=== PATIENT | male | born 1945 | race Caucasian/White ===

== ENCOUNTER → 2016-09-09 | Day surgery (SDC) | payer MEDICARE, BC, OTHER ==
[~2016-09-09] VITALS: Ht 190.5 cm; Wt 167.8 kg
[~2016-09-09] MED LIST: ACETAMINOPHEN 325 MG TAB PO PRN; ACETYLCHOLINE OPHTH SOLN 1% 2ML As Ordered ONE; ALLO100T PO; AMLO2.5T PO; ASPI1TAB PO; AcetaZOLAMIDE 500 MG ER CAP PO ONE; BIMA01SOL OD; BSS with VANC/TOB/EPI for EYE CASES IR ONE; CEFUROXIME 1MG/0.1ML INTRACAMERAL INJ As Ordered ONE; CYCLOPENTOLATE 2% OPHTH SOLN OS ONE; D5W/0.2% SODIUM CHLORIDE 250 ML IV SCH; FISH100049 PO; HEALON DUET (HEALON 10MG/ML 0.55ML & HEALON ENDOCOAT 30MG/ML 0.85ML) As Ordered ONE; HYDR25TAB PO; KETOROLAC 0.5% OPHTH SOLN OS ONE; LASI40TA PO; LIDOCAINE 1% SDV 5 ML VIAL As Ordered ONE; LIDOCAINE 4% INJ 5 ML AMP OU ONE; LISI40TAB PO; MIDAZOLAM INJ 2 MG/2 ML VIAL (J2250) As Ordered ONE; MULT1TAB9 PO; OFLOXACIN 0.3 % (OCUFLOX) OPTH SOL 5ML OS ONE; PHENYLEPHRINE 2.5% OPHTH SOL 2ML OS ONE; POVIDONE-IODINE 5% OPHTH PREP SOL 30ML As Ordered ONE; PROPARACAINE 0.5% OPHTH SOL 15ML OS PRN; SIMB1SUS OD; TRIMETHOBENZAMIDE 300 MG CAP PO PRN; TROPICAMIDE 1% OPHTH SOLN 2 ML OS ONE; TUMERIC; fentaNYL 100 MCG/2 ML INJECTION (J3010) As Ordered ONE
[2016-09-09 09:12] VITALS: BP 145/80
--- NOTE | 2016-09-09 16:19 | RO ---
DATE OF PROCEDURE: 09/09/2016 PREPROCEDURE DIAGNOSIS: 1. Cataract left eye. 2. Glaucoma left eye. 3. Iridolenticular adhesions left eye. POSTPROCEDURE DIAGNOSIS: 1. Cataract left eye. 2. 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 SURGEON: Blossom Bradley MD METALLURGICAL TECHNICIAN: None. ANESTHESIA: COMPLICATIONS: None. DESCRIPTION OF PROCEDURE: The patient was brought to the operating room and laid in supine position. The eye was prepped and draped in a sterile fashion for ophthalmic surgery and a lid speculum was placed. A side port incision was made and EndoCoat was injected was injected into the anterior chamber. Temporal clear corneal incision was then made with a 2.4 mm keratome. This was followed by lysing of the iridolenticular adhesions with the help of the EndoCoat cannula and the Kuglen forcep. After the lysis were done, capsulorrhexis was done followed by hydrodissection. Phacoemulsification was carried out in a divide and conquer method followed by aspiration of the cortical material. Healon was placed in the capsular bag and the intraocular lens was then placed. Healon was then placed in the ciliary sulcus to visualize the ciliary processes under high mag with the help of the video screen and EndoProbe. Endocyclophotocoagulation was then done 280 degrees at 0.25 milliwatts. Good results were noted by shrinking of the ciliary processes. Excess Healon was then aspirated, the wound hydrated, lid speculum removed and the patient returned to the recovery room.
== END | disposition home or self-care (01) ==
LOC: M SDC 06:53
PROVIDERS: ATTEND Ophthalmology
DX: H26.9 Unspecified cataract (principal); H40 Glaucoma; H21.502 Unspecified adhesions of iris, left eye; I10 Essential (primary) hypertension; M10.9 Gout, unspecified; G47.30 Sleep apnea, unspecified; R06.02 Shortness of breath; Z79.82 Long term (current) use of aspirin; Z79.899 Other long term (current) drug therapy; F17.210 Nicotine dependence, cigarettes, uncomplicated
CPT/HCPCS: 66711; 66984; J2250; J3010; V2632

== ENCOUNTER → 2017-05-08 | Outpatient (REF) | payer MEDICARE, OTHER ==
[~2017-05-08] MED LIST changes: -ACETAMINOPHEN 325 MG TAB PO PRN; -ACETYLCHOLINE OPHTH SOLN 1% 2ML As Ordered ONE; -AcetaZOLAMIDE 500 MG ER CAP PO ONE; -BSS with VANC/TOB/EPI for EYE CASES IR ONE; -CEFUROXIME 1MG/0.1ML INTRACAMERAL INJ As Ordered ONE; -CYCLOPENTOLATE 2% OPHTH SOLN OS ONE; -D5W/0.2% SODIUM CHLORIDE 250 ML IV SCH; -HEALON DUET (HEALON 10MG/ML 0.55ML & HEALON ENDOCOAT 30MG/ML 0.85ML) As Ordered ONE; -KETOROLAC 0.5% OPHTH SOLN OS ONE; -LIDOCAINE 1% SDV 5 ML VIAL As Ordered ONE; -LIDOCAINE 4% INJ 5 ML AMP OU ONE; -MIDAZOLAM INJ 2 MG/2 ML VIAL (J2250) As Ordered ONE; -OFLOXACIN 0.3 % (OCUFLOX) OPTH SOL 5ML OS ONE; -PHENYLEPHRINE 2.5% OPHTH SOL 2ML OS ONE; -POVIDONE-IODINE 5% OPHTH PREP SOL 30ML As Ordered ONE; -PROPARACAINE 0.5% OPHTH SOL 15ML OS PRN; -TRIMETHOBENZAMIDE 300 MG CAP PO PRN; -TROPICAMIDE 1% OPHTH SOLN 2 ML OS ONE; -fentaNYL 100 MCG/2 ML INJECTION (J3010) As Ordered ONE
[2017-05-08 12:00] LABS: ANION GAP 8 MEQ/L (8-16); BLOOD UREA NITROGEN 16 MG/DL (7-18); CALCIUM LEVEL 9.3 MG/DL (8.8-10.2); CARBON DIOXIDE LEVEL 29 MEQ/L (21-32); CHLORIDE LEVEL 106 MEQ/L (98-107); CHOLESTEROL LEVEL 165 MG/DL (<200); CREATININE FOR GFR 1.09 MG/DL (0.70-1.30); GLOMERULAR FILTRATION RATE > 60.0 (>42); GLUCOSE, FASTING 89 MG/DL (83-110); POTASSIUM SERUM 4.4 MEQ/L (3.5-5.1); SODIUM LEVEL 143 MEQ/L (136-145); TRIGLYCERIDES LEVEL 140 MG/DL (<150)
== END ==
LOC: M SFHCCLAY 08:39
PROVIDERS: ATTEND Family Medicine
DX: E78.2 Mixed hyperlipidemia (principal); M10.9 Gout, unspecified; I10 Essential (primary) hypertension; Z23 Encounter for immunization
CPT/HCPCS: 80048; 80061; 84550; 90662; G0008; G0463

== ENCOUNTER 2018-03-03 09:58 | Inpatient (IN) | payer MEDICARE, OTHER, BC ==
[2018-03-03] MEDS: LR 1,000 ML IV ×3 (10:53→16:00)
[2018-03-03 10:59] LABS: INR 1.11; PROTHROMBIN TIME 14.4 SECONDS (12.1-14.4)
[2018-03-03] MEDS ORDERED: fentaNYL 100 MCG/2 ML INJECTION (J3010) As Ordered ×2 (11:54→14:31)
[2018-03-03] MEDS ORDERED: LIDOCAINE 2% INJ 100 MG/5 ML SDV (FOR ANES.) As Ordered (11:58)
[2018-03-03] MEDS ORDERED: PROPOFOL 200 MG/20 ML VIAL As Ordered (11:58)
[2018-03-03] MEDS ORDERED: ONDANSETRON 4MG/2ML VIAL (J2405) As Ordered (11:59)
[2018-03-03] MEDS ORDERED: MIDAZOLAM INJ 2 MG/2 ML VIAL (J2250) As Ordered (11:59)
[2018-03-03] MEDS ORDERED: ePHEDrine SULFATE 25 MG/5 ML(5MG/ML) SYRINGE As Ordered ×3 (12:11→15:30)
[2018-03-03] MEDS: ceFAZolin SOD 1 GM in D5W MINI-BAG PLUS 50 ML IV ×2 (13:10→22:35)
[2018-03-03] MEDS ORDERED: dexameTHASONE 4 MG/ML 1ML VIAL (J1100) As Ordered (14:28)
[2018-03-03] MEDS ORDERED: GLYCOPYRROLATE INJ 0.2 MG/ML 2 ML VIAL As Ordered ×2 (14:33)
[2018-03-03] MEDS ORDERED: NEOSTIGMINE 10 MG/10 ML VIAL (J2710) As Ordered (14:33)
[2018-03-03] MEDS: TRANEXAMIC ACID 100 MG/ML 10ML VIAL As Ordered (14:35)
[2018-03-03] MEDS: ceFAZolin 1GM INJ (J0690 PER 500MG) As Ordered (14:35)
[2018-03-03] MEDS: EPINEPHrine INJ 1 MG/ML 1ML AMP As Ordered (14:35)
[2018-03-03] MEDS ORDERED: MORPHINE 1MG/ML IN 0.9% NACL 100ML IV BAG As Ordered (15:35)
[2018-03-03] MEDS ORDERED: ACETAMINOPHEN TAB 650MG DOSE (2X325MG) PO (16:00)
[2018-03-03] MEDS ORDERED: NALOXONE INJ 0.4 MG/1 ML VIAL (J2310) IV (16:00)
[2018-03-03] MEDS ORDERED: FLEET ENEMA PR (16:00)
[2018-03-03] MEDS ORDERED: diphenhydrAMINE INJ 50MG/ML VIAL (J1200) IV (16:00)
[2018-03-03] MEDS ORDERED: ONDANSETRON 4MG/2ML VIAL (J2405) IV (16:00)
[2018-03-03] MEDS ORDERED: EPIDURAL/PCA KEYS XX (16:00)
[2018-03-03] MEDS ORDERED: NALBUPHINE HCL 10 MG/ML AMP (J2300) IV (16:00)
[2018-03-03] MEDS: PERCOCET 5MG/325MG TAB PO ×2 (16:08→16:46)
[2018-03-03] MEDS: fentaNYL 100 MCG/2 ML INJECTION (J3010) IV ×4 (16:15→16:35)
[2018-03-03] MEDS: ONDANSETRON 4MG/2ML VIAL (J2405) IV (16:19)
[2018-03-03] MEDS: MORPHINE 1MG/ML IN 0.9% NACL 100ML IV BAG IV (16:20)
[2018-03-03] MEDS: AcetaZOLAMIDE 500 MG ER CAP PO (22:33)
[2018-03-03] MEDS: LISINOPRIL 20 MG TAB PO (22:34)
[2018-03-03] MEDS: RHOPRESSA 0.02% OS (22:34)
[2018-03-03] MEDS: SIMBRINZA OD (22:34)
[2018-03-03] MEDS: VYZULTA 0.024% OU (22:34)
[2018-03-03] MEDS: EYE OD (22:34)
[2018-03-03] MEDS: TIMOLOL MALEATE 0.5% OPHTH SOLN 5 ML OU (22:35)
[2018-03-04] MEDS: LR 1,000 ML IV (05:20)
[2018-03-04] MEDS ORDERED: ONDANSETRON 4 MG TAB (S0181) PO (06:30)
[2018-03-04] MEDS: ceFAZolin SOD 1 GM in D5W MINI-BAG PLUS 50 ML IV (06:30)
[2018-03-04 07:21] LABS: HEMATOCRIT 34.4 % (42.0-52.0); HEMOGLOBIN 11.5 g/dl (13.5-17.5); MEAN CORPUSCULAR HEMOGLOBIN 29.3 pg (27.0-33.0); MEAN CORPUSCULAR HGB CONC 33.4 g/dl (32.0-36.5); MEAN CORPUSCULAR VOLUME 87.8 fl (80.0-96.0); PLATELET COUNT, AUTOMATED 194 10^3/uL (150-450); RED BLOOD COUNT 3.92 10^6/uL (4.30-6.10); RED CELL DISTRIBUTION WIDTH 14.6 % (11.5-14.5); WHITE BLOOD COUNT 10.6 10^3/uL (4.0-10.0)
[2018-03-04] MEDS: LISINOPRIL 20 MG TAB PO ×2 (08:14→20:13)
[2018-03-04] MEDS: ALLOPURINOL 100 MG TAB PO (08:15)
[2018-03-04] MEDS: FUROSEMIDE 40 MG TAB PO (08:15)
[2018-03-04] MEDS: hydroCHLOROthiazide 25 MG TAB PO (08:15)
[2018-03-04] MEDS: SENOKOT S TAB PO ×2 (08:15→20:13)
[2018-03-04] MEDS: RIVAROXABAN 10 MG TAB (XARELTO) PO (08:16)
[2018-03-04] MEDS: AcetaZOLAMIDE 500 MG ER CAP PO ×2 (08:17→20:13)
[2018-03-04] MEDS: MOM 30ML SUSPENSION UDC PO (08:17)
[2018-03-04] MEDS: MIRALAX *UNIT DOSE* 17GM PACKET PO (08:17)
[2018-03-04] MEDS: TIMOLOL MALEATE 0.5% OPHTH SOLN 5 ML OU ×2 (08:17→20:13)
[2018-03-04] MEDS: EYE OD ×2 (08:18→20:13)
[2018-03-04] MEDS: SIMBRINZA OD ×2 (08:18→20:13)
[2018-03-04] MEDS: PERCOCET 5MG/325MG TAB PO ×3 (08:39→20:15)
[2018-03-04 12:19] LABS: ANION GAP 8 MEQ/L (8-16); BLOOD UREA NITROGEN 25 MG/DL (7-18); CARBON DIOXIDE LEVEL 20 MEQ/L (21-32); CHLORIDE LEVEL 113 MEQ/L (98-107); CREATININE FOR GFR 1.38 MG/DL (0.70-1.30); GLOMERULAR FILTRATION RATE 54.1 (>42); GLUCOSE, FASTING 106 MG/DL (70-100); POTASSIUM SERUM 4.4 MEQ/L (3.5-5.1); SODIUM LEVEL 141 MEQ/L (136-145)
[2018-03-04] MEDS: RHOPRESSA 0.02% OS (20:13)
[2018-03-04] MEDS: VYZULTA 0.024% OU (20:14)
[2018-03-05] MEDS: PERCOCET 5MG/325MG TAB PO ×5 (00:24→20:14)
[2018-03-05 06:56] LABS: HEMATOCRIT 31.5 % (42.0-52.0); HEMOGLOBIN 10.5 g/dl (13.5-17.5); MEAN CORPUSCULAR HEMOGLOBIN 29.4 pg (27.0-33.0); MEAN CORPUSCULAR HGB CONC 33.3 g/dl (32.0-36.5); MEAN CORPUSCULAR VOLUME 88.2 fl (80.0-96.0); PLATELET COUNT, AUTOMATED 155 10^3/uL (150-450); RED BLOOD COUNT 3.57 10^6/uL (4.30-6.10); RED CELL DISTRIBUTION WIDTH 14.5 % (11.5-14.5); WHITE BLOOD COUNT 10.3 10^3/uL (4.0-10.0)
[2018-03-05] MEDS: MIRALAX *UNIT DOSE* 17GM PACKET PO (08:12)
[2018-03-05] MEDS: MOM 30ML SUSPENSION UDC PO (08:12)
[2018-03-05] MEDS: ALLOPURINOL 100 MG TAB PO (08:13)
[2018-03-05] MEDS: SENOKOT S TAB PO ×2 (08:13→20:12)
[2018-03-05] MEDS: FUROSEMIDE 40 MG TAB PO (08:13)
[2018-03-05] MEDS: RIVAROXABAN 10 MG TAB (XARELTO) PO (08:13)
[2018-03-05] MEDS: SIMBRINZA OD ×2 (08:15→20:14)
[2018-03-05] MEDS: TIMOLOL MALEATE 0.5% OPHTH SOLN 5 ML OU ×2 (08:15→20:14)
[2018-03-05] MEDS: EYE OD ×2 (08:15→20:14)
[2018-03-05] MEDS: LISINOPRIL 20 MG TAB PO ×2 (08:19→20:12)
[2018-03-05] MEDS: AcetaZOLAMIDE 500 MG ER CAP PO ×2 (08:20→20:12)
[2018-03-05] MEDS: hydroCHLOROthiazide 25 MG TAB PO (08:20)
[2018-03-05] MEDS: VYZULTA 0.024% OU (20:15)
[2018-03-05] MEDS: RHOPRESSA 0.02% OS (20:15)
[2018-03-06] MEDS: PERCOCET 5MG/325MG TAB PO ×3 (03:52→20:11)
[2018-03-06] MEDS: MOM 30ML SUSPENSION UDC PO (08:02)
[2018-03-06] MEDS: MIRALAX *UNIT DOSE* 17GM PACKET PO (08:02)
[2018-03-06] MEDS: EYE OD ×2 (08:03→20:12)
[2018-03-06] MEDS: TIMOLOL MALEATE 0.5% OPHTH SOLN 5 ML OU ×2 (08:03→20:12)
[2018-03-06] MEDS: SIMBRINZA OD ×2 (08:03→20:12)
[2018-03-06] MEDS: AcetaZOLAMIDE 500 MG ER CAP PO ×2 (08:03→20:09)
[2018-03-06] MEDS: RIVAROXABAN 10 MG TAB (XARELTO) PO (08:03)
[2018-03-06] MEDS: LISINOPRIL 20 MG TAB PO (08:04)
[2018-03-06] MEDS: SENOKOT S TAB PO ×2 (08:04→20:09)
[2018-03-06] MEDS: hydroCHLOROthiazide 25 MG TAB PO (08:06)
[2018-03-06] MEDS: ALLOPURINOL 100 MG TAB PO (08:06)
[2018-03-06] MEDS: FUROSEMIDE 40 MG TAB PO (08:09)
[2018-03-06 08:28] LABS: HEMATOCRIT 31.1 % (42.0-52.0); HEMOGLOBIN 10.4 g/dl (13.5-17.5); MEAN CORPUSCULAR HGB CONC 33.4 g/dl (32.0-36.5); MEAN CORPUSCULAR VOLUME 89.6 fl (80.0-96.0); PLATELET COUNT, AUTOMATED 165 10^3/uL (150-450); RED BLOOD COUNT 3.47 10^6/uL (4.30-6.10); RED CELL DISTRIBUTION WIDTH 14.6 % (11.5-14.5); WHITE BLOOD COUNT 9.2 10^3/uL (4.0-10.0)
[2018-03-06] MEDS ORDERED: FLEET ENEMA PR (08:45)
[2018-03-06 08:53] LABS: ANION GAP 8 MEQ/L (8-16); BLOOD UREA NITROGEN 36 MG/DL (7-18); CARBON DIOXIDE LEVEL 22 MEQ/L (21-32); CHLORIDE LEVEL 108 MEQ/L (98-107); CREATININE FOR GFR 1.66 MG/DL (0.70-1.30); GLOMERULAR FILTRATION RATE 43.7 (>42); GLUCOSE, FASTING 102 MG/DL (70-100); POTASSIUM SERUM 3.7 MEQ/L (3.5-5.1); SODIUM LEVEL 138 MEQ/L (136-145)
[2018-03-06] MEDS: FLEET ENEMA PR (10:16)
[2018-03-06] MEDS: NS 1,000 ML IV ×2 (12:42→23:54)
[2018-03-06] MEDS: VYZULTA 0.024% OU (20:11)
[2018-03-06] MEDS: RHOPRESSA 0.02% OS (20:12)
[2018-03-07 07:11] LABS: ANION GAP 7 MEQ/L (8-16); BLOOD UREA NITROGEN 32 MG/DL (7-18); CALCIUM LEVEL 8.5 MG/DL (8.8-10.2); CARBON DIOXIDE LEVEL 22 MEQ/L (21-32); CHLORIDE LEVEL 108 MEQ/L (98-107); CREATININE FOR GFR 1.29 MG/DL (0.70-1.30); GLOMERULAR FILTRATION RATE 58.5 (>42); GLUCOSE, FASTING 106 MG/DL (70-100); POTASSIUM SERUM 3.5 MEQ/L (3.5-5.1); SODIUM LEVEL 137 MEQ/L (136-145)
[2018-03-07] MEDS: MOM 30ML SUSPENSION UDC PO (07:51)
[2018-03-07] MEDS: MIRALAX *UNIT DOSE* 17GM PACKET PO (07:51)
[2018-03-07] MEDS: TIMOLOL MALEATE 0.5% OPHTH SOLN 5 ML OU ×2 (07:52→20:44)
[2018-03-07] MEDS: SIMBRINZA OD ×2 (07:52→20:44)
[2018-03-07] MEDS: EYE OD ×2 (07:52→20:44)
[2018-03-07] MEDS: PERCOCET 5MG/325MG TAB PO ×2 (07:53→17:44)
[2018-03-07] MEDS: SENOKOT S TAB PO ×2 (07:53→20:43)
[2018-03-07] MEDS: ALLOPURINOL 100 MG TAB PO (07:53)
[2018-03-07] MEDS: AcetaZOLAMIDE 500 MG ER CAP PO ×2 (07:54→20:43)
[2018-03-07] MEDS: RIVAROXABAN 10 MG TAB (XARELTO) PO (07:54)
[2018-03-07] MEDS: VYZULTA 0.024% OU (20:44)
[2018-03-07] MEDS: RHOPRESSA 0.02% OS (20:44)
[2018-03-08] MEDS: MIRALAX *UNIT DOSE* 17GM PACKET PO (09:00)
[2018-03-08] MEDS: MOM 30ML SUSPENSION UDC PO (09:00)
[2018-03-08] MEDS: ALLOPURINOL 100 MG TAB PO (09:06)
[2018-03-08] MEDS: RIVAROXABAN 10 MG TAB (XARELTO) PO (09:06)
[2018-03-08] MEDS: SENOKOT S TAB PO ×2 (09:07→21:00)
[2018-03-08] MEDS: AcetaZOLAMIDE 500 MG ER CAP PO ×2 (09:07→21:09)
[2018-03-08] MEDS: SIMBRINZA OD ×2 (09:07→21:10)
[2018-03-08] MEDS: TIMOLOL MALEATE 0.5% OPHTH SOLN 5 ML OU ×2 (09:07→21:10)
[2018-03-08] MEDS: EYE OD ×2 (09:07→21:10)
[2018-03-08] MEDS: amLODIPine 5 MG TAB PO (09:07)
[2018-03-08] MEDS: INFLUENZA VIRUS VACCINE HIGH DOSE 0.5 ML SYRINGE (90662) IM (09:09)
[2018-03-08] MEDS: PERCOCET 5MG/325MG TAB PO ×2 (09:16→17:10)
[2018-03-08] MEDS: RHOPRESSA 0.02% OS (21:10)
[2018-03-08] MEDS: VYZULTA 0.024% OU (21:10)
[2018-03-09] MEDS: PERCOCET 5MG/325MG TAB PO (07:43)
[2018-03-09 07:46] LABS: HEMATOCRIT 30.2 % (42.0-52.0); HEMOGLOBIN 10.1 g/dl (13.5-17.5); MEAN CORPUSCULAR HEMOGLOBIN 29.4 pg (27.0-33.0); MEAN CORPUSCULAR HGB CONC 33.4 g/dl (32.0-36.5); PLATELET COUNT, AUTOMATED 227 10^3/uL (150-450); RED BLOOD COUNT 3.43 10^6/uL (4.30-6.10); RED CELL DISTRIBUTION WIDTH 14.6 % (11.5-14.5); WHITE BLOOD COUNT 6.8 10^3/uL (4.0-10.0)
[2018-03-09 08:10] LABS: ANION GAP 11 MEQ/L (8-16); BLOOD UREA NITROGEN 25 MG/DL (7-18); CALCIUM LEVEL 8.2 MG/DL (8.8-10.2); CARBON DIOXIDE LEVEL 19 MEQ/L (21-32); CHLORIDE LEVEL 110 MEQ/L (98-107); GLOMERULAR FILTRATION RATE > 60.0 (>42); GLUCOSE, FASTING 107 MG/DL (70-100); POTASSIUM SERUM 3.7 MEQ/L (3.5-5.1); SODIUM LEVEL 140 MEQ/L (136-145)
[2018-03-09] MEDS: ALLOPURINOL 100 MG TAB PO (08:43)
[2018-03-09] MEDS: AcetaZOLAMIDE 500 MG ER CAP PO (08:44)
[2018-03-09] MEDS: RIVAROXABAN 10 MG TAB (XARELTO) PO (08:44)
[2018-03-09] MEDS: SENOKOT S TAB PO (08:44)
[2018-03-09] MEDS: MIRALAX *UNIT DOSE* 17GM PACKET PO (08:44)
[2018-03-09] MEDS: amLODIPine 5 MG TAB PO (08:44)
[2018-03-09] MEDS: MOM 30ML SUSPENSION UDC PO (08:45)
[2018-03-09] MEDS: SIMBRINZA OD (08:46)
[2018-03-09] MEDS: EYE OD (08:46)
[2018-03-09] MEDS: TIMOLOL MALEATE 0.5% OPHTH SOLN 5 ML OU (08:46)
== END 2018-03-09 11:30 | DRG 470 ==
LOC: M OR 09:58 → M MS5PR 18:55
PROC: 0SR904A Replacement of Right Hip Joint with Ceramic on Polyethylene Synthetic Substitute, Uncemented, Open Approach (ICD-10-PCS; principal; 2018-03-03 13:10)
DX: M16.11 Unilateral primary osteoarthritis, right hip (principal); Z68.41 Body mass index [BMI] 40.0-44.9, adult; E66.01 Morbid (severe) obesity due to excess calories; M10.9 Gout, unspecified; H40.9 Unspecified glaucoma; J44.9 Chronic obstructive pulmonary disease, unspecified; G47.30 Sleep apnea, unspecified; E78.5 Hyperlipidemia, unspecified; I10 Essential (primary) hypertension; Z79.82 Long term (current) use of aspirin; Z79.899 Other long term (current) drug therapy; Z98.49 Cataract extraction status, unspecified eye; Z87.891 Personal history of nicotine dependence

== ENCOUNTER → 2018-03-10 | Outpatient (REF) ==
[2018-03-10 11:02] LABS: HEMATOCRIT 35.9 % (42.0-52.0); HEMOGLOBIN 11.4 g/dl (13.5-17.5); MEAN CORPUSCULAR HEMOGLOBIN 29.5 pg (27.0-33.0); MEAN CORPUSCULAR HGB CONC 31.8 g/dl (32.0-36.5); MEAN CORPUSCULAR VOLUME 92.8 fl (80.0-96.0); PLATELET COUNT, AUTOMATED 295 10^3/uL (150-450); RED BLOOD COUNT 3.87 10^6/uL (4.30-6.10); RED CELL DISTRIBUTION WIDTH 14.4 % (11.5-14.5); WHITE BLOOD COUNT 6.9 10^3/uL (4.0-10.0)
[2018-03-10 11:26] LABS: ANION GAP 11 MEQ/L (8-16); BLOOD UREA NITROGEN 20 MG/DL (7-18); CALCIUM LEVEL 8.2 MG/DL (8.8-10.2); CARBON DIOXIDE LEVEL 17 MEQ/L (21-32); CHLORIDE LEVEL 112 MEQ/L (98-107); CREATININE FOR GFR 0.99 MG/DL (0.70-1.30); GLOMERULAR FILTRATION RATE > 60.0 (>42); GLUCOSE, FASTING 81 MG/DL (70-100); POTASSIUM SERUM 4.3 MEQ/L (3.5-5.1); SODIUM LEVEL 140 MEQ/L (136-145)
== END ==
DX: Z96.649 Presence of unspecified artificial hip joint (principal); Z79.899 Other long term (current) drug therapy

== ENCOUNTER → 2018-03-17 | Outpatient (REF) ==
[2018-03-17 09:54] LABS: HEMATOCRIT 31.6 % (42.0-52.0); HEMOGLOBIN 10.3 g/dl (13.5-17.5); MEAN CORPUSCULAR HEMOGLOBIN 29.4 pg (27.0-33.0); MEAN CORPUSCULAR HGB CONC 32.6 g/dl (32.0-36.5); MEAN CORPUSCULAR VOLUME 90.3 fl (80.0-96.0); PLATELET COUNT, AUTOMATED 352 10^3/uL (150-450); RED CELL DISTRIBUTION WIDTH 14.2 % (11.5-14.5); WHITE BLOOD COUNT 8.3 10^3/uL (4.0-10.0)
[2018-03-17 10:32] LABS: ANION GAP 11 MEQ/L (8-16); BLOOD UREA NITROGEN 27 MG/DL (7-18); CALCIUM LEVEL 8.8 MG/DL (8.8-10.2); CARBON DIOXIDE LEVEL 23 MEQ/L (21-32); CHLORIDE LEVEL 107 MEQ/L (98-107); CREATININE FOR GFR 1.21 MG/DL (0.70-1.30); GLOMERULAR FILTRATION RATE > 60.0 (>42); GLUCOSE, FASTING 91 MG/DL (70-100); POTASSIUM SERUM 3.7 MEQ/L (3.5-5.1); SODIUM LEVEL 141 MEQ/L (136-145)
== END ==
DX: Z96.641 Presence of right artificial hip joint (principal); Z79.899 Other long term (current) drug therapy; Z98.890 Other specified postprocedural states

== ENCOUNTER → 2018-04-01 | Outpatient (REF) | payer MEDICARE, OTHER ==
[2018-04-01 16:29] LABS: HEMATOCRIT 33.4 % (42.0-52.0); HEMOGLOBIN 10.8 g/dl (13.5-17.5); MEAN CORPUSCULAR HEMOGLOBIN 28.9 pg (27.0-33.0); MEAN CORPUSCULAR HGB CONC 32.3 g/dl (32.0-36.5); MEAN CORPUSCULAR VOLUME 89.3 fl (80.0-96.0); PLATELET COUNT, AUTOMATED 230 10^3/uL (150-450); RED BLOOD COUNT 3.74 10^6/uL (4.30-6.10); RED CELL DISTRIBUTION WIDTH 14.6 % (11.5-14.5)
[2018-04-01 17:02] LABS: ANION GAP 10 MEQ/L (8-16); BLOOD UREA NITROGEN 40 MG/DL (7-18); CALCIUM LEVEL 8.6 MG/DL (8.8-10.2); CARBON DIOXIDE LEVEL 22 MEQ/L (21-32); CHLORIDE LEVEL 106 MEQ/L (98-107); CREATININE FOR GFR 1.36 MG/DL (0.70-1.30); GLUCOSE, FASTING 101 MG/DL (70-100); IRON (FE) 72 UG/DL (65-175); PERCENT SATURATION 27.6 % (19.7-50.0); POTASSIUM SERUM 3.6 MEQ/L (3.5-5.1); SODIUM LEVEL 138 MEQ/L (136-145); TOTAL IRON BINDING CAPACITY 261 UG/DL (250-450)
[2018-04-03 12:36] LABS: HEP C VIRUS AB SCREEN MEDICARE < 0.0 INDEX (<0.8)
== END ==
LOC: M SFHCCLAY 10:20
DX: I10 Essential (primary) hypertension (principal); D64.9 Anemia, unspecified; Z91.89 Other specified personal risk factors, not elsewhere classified; Z11.59 Encounter for screening for other viral diseases
CPT/HCPCS: 83550

== ENCOUNTER → 2018-04-28 | Outpatient (REF) | payer MEDICARE, OTHER ==
[2018-04-28 19:03] LABS: BASO # 0.1 10^3/uL (0.0-0.2); BASO % 0.6 % (0.0-1.0); EOS # 0.4 10^3/uL (0.0-0.50); EOS % 4.7 % (0.0-3.0); HEMATOCRIT 35.9 % (42.0-52.0); HEMOGLOBIN 11.2 g/dl (13.5-17.5); IMMATURE GRANULOCYTE % 0.3 % (0-3.0); LYMPH # 1.1 10^3/uL (1.5-4.5); LYMPH % 13.5 % (24.0-44.0); MEAN CORPUSCULAR HEMOGLOBIN 28.3 pg (27.0-33.0); MEAN CORPUSCULAR HGB CONC 31.2 g/dl (32.0-36.5); MEAN CORPUSCULAR VOLUME 90.7 fl (80.0-96.0); MONO # 0.5 10^3/uL (0.0-0.8); MONO % 6.7 % (0.0-5.0); NEUTROPHILS # 5.8 10^3/uL (1.8-7.7); NEUTROPHILS % 74.2 % (36.0-66.0); PLATELET COUNT, AUTOMATED 254 10^3/uL (150-450); RED BLOOD COUNT 3.96 10^6/uL (4.30-6.10); RED CELL DISTRIBUTION WIDTH 14.7 % (11.5-14.5); WHITE BLOOD COUNT 7.9 10^3/uL (4.0-10.0)
== END ==
LOC: M SFHCCLAY 10:36
DX: R59.0 Localized enlarged lymph nodes (principal)
CPT/HCPCS: 85025

== ENCOUNTER → 2018-09-11 | Outpatient (REF) | payer MEDICARE, OTHER ==
[~2018-09-11] MED LIST changes: +ACET500C4 PO; +ALEV220T26 PO; -AMLO2.5T PO; +AMLO2.5T3 PO; -ASPI1TAB PO; +ASPI81TA26 PO; -BIMA01SOL OD; +BIMA01SOL OS; -LASI40TA PO; +LASI40TA9 PO; +LISI40TA PO; -LISI40TAB PO; +PERC5TAB12 PO; +RHOP0.02 OP; -SIMB1SUS OD; +SIMB1SUS OU; +TIMO0.5S29 OU; +VYZU0.02 OU; +XARE10TA PO
[2018-09-11 16:42] LABS: CALCIUM LEVEL 9.3 MG/DL (8.8-10.2); CREATININE FOR GFR 1.27 MG/DL (0.70-1.30); GLOMERULAR FILTRATION RATE 59.5 (>42); POTASSIUM SERUM 3.9 MEQ/L (3.5-5.1)
== END ==
LOC: M SFHCCLAY 10:20
PROVIDERS: ATTEND Family Medicine
DX: I10 Essential (primary) hypertension (principal)
CPT/HCPCS: 80048; G0463

== ENCOUNTER → 2018-11-04 | Outpatient (REF) | payer MEDICARE, OTHER ==
[2018-11-05 11:47] LABS: BLOOD UREA NITROGEN 19 MG/DL (7-18); CALCIUM LEVEL 8.7 MG/DL (8.8-10.2); CARBON DIOXIDE LEVEL 26 MEQ/L (21-32); CHLORIDE LEVEL 110 MEQ/L (98-107); CREATININE FOR GFR 1.22 MG/DL (0.70-1.30); GLOMERULAR FILTRATION RATE > 60.0 (>42); GLUCOSE, FASTING 94 MG/DL (70-100); POTASSIUM SERUM 4.1 MEQ/L (3.5-5.1); SODIUM LEVEL 141 MEQ/L (136-145)
== END ==
LOC: M SFHCCLAY 14:37
PROVIDERS: ATTEND Family Medicine
DX: I10 Essential (primary) hypertension (principal)
CPT/HCPCS: 80048; 93005; G0463

== ENCOUNTER → 2018-11-20 | Outpatient (CLI) | payer MEDICARE, BC, OTHER ==
--- NOTE | 2018-11-20 11:24 | REP ---
CAROTID ULTRASOUND: Real-time ultrasound evaluation and duplex Doppler interrogation of the extracranial carotid vasculature is performed. Moderate plaquing and narrowing is seen of the carotid bulbs extending into the internal and external carotid arteries bilaterally. There is elevated peak systolic velocity in the left internal carotid artery compatible with stenosis between 60-79%. Luminal narrowing of the right internal carotid artery appears to be less than 50%. There is normal direction of flow in both vertebral arteries. RIGHT LEFT Peak systolic velocity ICA 120.0 cm/s 174.0 cm/s End diastolic velocity ICA 23.1 cm/s 29.5 cm/s Peak systolic velocity CCA 99.9 cm/s 103.0 cm/s Peak systolic velocity ECA 109.0 cm/s 92.7 cm/s ICA/CCA ratio 1.55 2.35 IMPRESSION: Moderate plaquing and narrowing bilateral carotid bulbs and internal carotid arteries. Luminal narrowing right internal carotid artery less than 50%. Stenosis left internal carotid artery is 60-79%. Electronically Signed by Mervin Barker MD 11/20/2018 04:15 P
== END ==
LOC: M RAD 09:02
PROVIDERS: ATTEND Ophthalmology Retina Specialist
DX: H35.82 Retinal ischemia (principal)

== ENCOUNTER → 2019-04-13 | Outpatient (REF) | payer MEDICARE, OTHER | LOC: M SFHCPLAZ 18:23 | PROVIDERS: ATTEND Dermatology | DX: C44.310 Basal cell carcinoma of skin of unspecified parts of face (principal) | CPT/HCPCS: 11102; 17000; 17003; 88305; G0463 ==

== ENCOUNTER → 2019-04-26 | Outpatient (REF) | payer MEDICARE, OTHER ==
[2019-04-26 13:11] LABS: CREATININE FOR GFR 1.36 MG/DL (0.70-1.30); GLOMERULAR FILTRATION RATE 54.8 (>42); POTASSIUM SERUM 4.2 MEQ/L (3.5-5.1)
== END ==
LOC: M SFHCCLAY 08:05
PROVIDERS: ATTEND Family Medicine
DX: I10 Essential (primary) hypertension (principal)

== ENCOUNTER → 2019-04-27 | Outpatient (CLI) | payer MEDICARE, BC, OTHER ==
--- NOTE | 2019-04-28 09:02 | REP ---
Extracranial MRA: 04/27/2019. Indication: Carotid stenosis. Comparison: None. Technique: [id number] axial images of the extracranial carotid and vertebral arteries were performed without IV IV contrast. Findings: There is no hemodynamically significant extracranial ICA stenosis by NASCET criteria. There is moderate atherosclerotic narrowing of the most proximal left ICA just beyond the bifurcation. The left vertebral artery is dominant. There is significant atherosclerotic narrowing of the proximal nondominant right vertebral artery. Impression: No hemodynamically significant extracranial ICA stenosis by NASCET criteria. Electronically Signed by Best Mace DO 04/28/2019 08:53 A
== END ==
LOC: M RAD 15:50
PROVIDERS: ATTEND Family Medicine
DX: I65.22 Occlusion and stenosis of left carotid artery (principal)

== ENCOUNTER → 2019-05-05 | Outpatient (REF) | payer MEDICARE, OTHER | LOC: M LAB REF 08:48 | PROVIDERS: ATTEND Dermatology | DX: C44.310 Basal cell carcinoma of skin of unspecified parts of face (principal) ==

== ENCOUNTER → 2019-12-17 | Outpatient (REF) | payer MEDICARE, OTHER | LOC: M LAB REF 18:02 | PROVIDERS: ATTEND Dermatology | DX: D04.21 Carcinoma in situ of skin of right ear and external auricular canal (principal) | CPT/HCPCS: 11102; 88305; G0463 ==

== ENCOUNTER → 2020-05-11 | Outpatient (REF) | payer MEDICARE, OTHER ==
[2020-05-11 11:57] LABS: HEMATOCRIT 42.5 % (42.0-52.0); HEMOGLOBIN 13.1 g/dl (13.5-17.5); MEAN CORPUSCULAR HEMOGLOBIN 27.9 pg (27.0-33.0); MEAN CORPUSCULAR HGB CONC 30.8 g/dl (32.0-36.5); MEAN CORPUSCULAR VOLUME 90.6 fl (80.0-96.0); PLATELET COUNT, AUTOMATED 223 10^3/uL (150-450); RED BLOOD COUNT 4.69 10^6/uL (4.30-6.10); WHITE BLOOD COUNT 6.7 10^3/uL (4.0-10.0)
[2020-05-11 12:55] LABS: ALBUMIN 3.7 GM/DL (3.2-5.2); BILIRUBIN,TOTAL 0.5 MG/DL (0.2-1.0); CHOLESTEROL RISK RATIO 4.805 (<5); CREATININE FOR GFR 1.7 MG/DL (0.70-1.30); GLOMERULAR FILTRATION RATE 42.3 (>42); POTASSIUM SERUM 4.3 MEQ/L (3.5-5.1); TOTAL PROTEIN 7.9 GM/DL (6.4-8.2)
== END ==
LOC: M SFHCCLAY 07:34
PROVIDERS: ATTEND Family Medicine
DX: I10 Essential (primary) hypertension (principal); R59.1 Generalized enlarged lymph nodes

== ENCOUNTER → 2020-12-13 | Outpatient (REF) | payer MEDICARE, OTHER ==
[~2020-12-13] MED LIST changes: +HYDR-3490 PO; -HYDR25TAB PO; -LISI40TA PO; +LISI40TA4 PO
[2020-12-13 16:17] LABS: BLOOD UREA NITROGEN 20 MG/DL (7-18); CALCIUM LEVEL 9.1 MG/DL (8.8-10.2); CARBON DIOXIDE LEVEL 28 MEQ/L (21-32); CHLORIDE LEVEL 108 MEQ/L (98-107); CREATININE FOR GFR 1.15 MG/DL (0.70-1.30); GLOMERULAR FILTRATION RATE > 60.0 (>42); GLUCOSE, FASTING 96 MG/DL (70-100); POTASSIUM SERUM 4.6 MEQ/L (3.5-5.1); SODIUM LEVEL 141 MEQ/L (136-145); URIC ACID 4.5 MG/DL (3.5-7.2)
== END ==
LOC: M SFHCCLAY 12:29
PROVIDERS: ATTEND Family Medicine
DX: M10.9 Gout, unspecified (principal); I10 Essential (primary) hypertension
CPT/HCPCS: 80048; 84550; G0463

== ENCOUNTER → 2021-02-01 | Outpatient (CLI) | payer MEDICARE, BC, OTHER | LOC: M LABSMTC 12:33 | PROVIDERS: ATTEND Ophthalmology | DX: Z01.812 Encounter for preprocedural laboratory examination (principal); Z20.822 Contact with and (suspected) exposure to COVID-19 ==

== ENCOUNTER → 2021-12-13 | Outpatient (REF) | payer MEDICARE, OTHER ==
[2021-12-13 11:41] LABS: HEMATOCRIT 42.3 % (42.0-52.0); HEMOGLOBIN 13.6 g/dl (13.5-17.5); MEAN CORPUSCULAR HEMOGLOBIN 28.3 pg (27.0-33.0); MEAN CORPUSCULAR HGB CONC 32.2 g/dl (32.0-36.5); MEAN CORPUSCULAR VOLUME 88.1 fl (80.0-96.0); PLATELET COUNT, AUTOMATED 219 10^3/uL (150-450); WHITE BLOOD COUNT 6.7 10^3/uL (4.0-10.0)
[2021-12-13 13:15] LABS: BILIRUBIN,TOTAL 0.6 MG/DL (0.2-1.0); CALCIUM LEVEL 9.6 MG/DL (8.8-10.2); CHOLESTEROL RISK RATIO 5.625 (<5); CREATININE FOR GFR 1.41 MG/DL (0.70-1.30); GLOMERULAR FILTRATION RATE 52.2 (>42); TOTAL PROTEIN 7.6 GM/DL (6.4-8.2); URIC ACID 4.6 MG/DL (3.5-7.2)
== END ==
LOC: M SFHCCLAY 07:47
PROVIDERS: ATTEND Family Medicine
DX: I10 Essential (primary) hypertension (principal); E78.2 Mixed hyperlipidemia; M10.9 Gout, unspecified

== ENCOUNTER → 2021-12-28 | Outpatient (REF) | payer MEDICARE, OTHER | LOC: M SFHCDERM 16:31 | PROVIDERS: ATTEND Nurse Practitioner Family | DX: L57.0 Actinic keratosis (principal) ==

== ENCOUNTER → 2022-05-01 | Outpatient (CLI) | payer MEDICARE, BC, OTHER | LOC: M RAD 13:18 | PROVIDERS: ATTEND Physician Assistant | DX: I65.23 Occlusion and stenosis of bilateral carotid arteries (principal) ==

== ENCOUNTER → 2022-12-12 | Outpatient (REF) | payer MEDICARE, OTHER ==
[~2022-12-12] MED LIST changes: +TIMO0.5S20 OU; -TIMO0.5S29 OU
[2022-12-12 11:19] LABS: URIC ACID 6.3 MG/DL (3.7-9.2)
[2022-12-12 11:22] LABS: ALBUMIN 3.7 G/DL (3.2-5.2); BILIRUBIN,TOTAL 0.6 MG/DL (0.3-1.2); CALCIUM LEVEL 8.7 MG/DL (8.3-10.6); CHOLESTEROL RISK RATIO 5.66 (<5); CREATININE FOR GFR 1.38 MG/DL (0.70-1.30); GLOMERULAR FILTRATION RATE 53.3 (>42); HDL CHOLESTEROL 30.2 MG/DL (>40); LDL CHOLESTEROL 108.6 MG/DL (<100); NON-HDL-C 140.8 MG/DL; POTASSIUM SERUM 4.1 MMOL/L (3.5-5.1); TOTAL PROTEIN 7.1 G/DL (5.7-8.2)
[2022-12-12 11:29] LABS: BASO % 0.5 % (0.0-1.0); EOS # 0.4 10^3/uL (0.0-0.5); EOS % 6.4 % (0.0-3.0); HEMATOCRIT 41.7 % (42.0-52.0); HEMOGLOBIN 13.5 g/dl (13.5-17.5); LYMPH # 1.7 10^3/uL (1.5-5.0); LYMPH % 26.1 % (24.0-44.0); MEAN CORPUSCULAR HEMOGLOBIN 28.8 pg (27.0-33.0); MEAN CORPUSCULAR HGB CONC 32.4 g/dl (32.0-36.5); MEAN CORPUSCULAR VOLUME 89.1 fl (80.0-96.0); MONO # 0.4 10^3/uL (0.0-0.8); MONO % 5.8 % (2.0-8.0); NEUTROPHILS # 3.9 10^3/uL (1.5-8.5); NEUTROPHILS % 60.9 % (36.0-66.0); PLATELET COUNT, AUTOMATED 213 10^3/uL (150-450); RED BLOOD COUNT 4.68 10^6/uL (4.30-6.10); WHITE BLOOD COUNT 6.4 10^3/uL (4.0-10.0)
== END ==
LOC: M SFHCCLAY 07:06
PROVIDERS: ATTEND Family Medicine
DX: E78.2 Mixed hyperlipidemia (principal); I10 Essential (primary) hypertension; M10.9 Gout, unspecified

== ENCOUNTER → 2023-01-07 | Outpatient (REF) | payer MEDICARE, OTHER | LOC: M SFHCDERM 18:05 | PROVIDERS: ATTEND Nurse Practitioner Family | DX: L82.1 Other seborrheic keratosis (principal) ==

== ENCOUNTER → 2023-12-16 | Outpatient (REF) | payer MEDICARE, BC ==
[2023-12-16 18:08] LABS: HEMOGLOBIN 13.4 g/dl (13.5-17.5); MEAN CORPUSCULAR HEMOGLOBIN 29.3 pg (27.0-33.0); MEAN CORPUSCULAR HGB CONC 32.7 g/dl (32.0-36.5); MEAN CORPUSCULAR VOLUME 89.5 fl (80.0-96.0); PLATELET COUNT, AUTOMATED 221 10^3/uL (150-450); RED BLOOD COUNT 4.58 10^6/uL (4.30-6.10)
[2023-12-16 18:11] LABS: ALBUMIN 3.6 G/DL (3.2-5.2); BILIRUBIN,TOTAL 0.6 MG/DL (0.3-1.2); CALCIUM LEVEL 9.7 MG/DL (8.3-10.6); CHOLESTEROL RISK RATIO 5.8 (<5); CREATININE FOR GFR 1.36 MG/DL (0.70-1.30); GLOMERULAR FILTRATION RATE 54.1 (>42); LDL CHOLESTEROL 98.4 MG/DL (<100); POTASSIUM SERUM 4.3 MMOL/L (3.5-5.1); TOTAL PROTEIN 7.1 G/DL (5.7-8.2)
== END ==
LOC: M SFHCCLAY 11:35
PROVIDERS: ATTEND Family Medicine
DX: I10 Essential (primary) hypertension (principal); E78.2 Mixed hyperlipidemia; M10.9 Gout, unspecified

== ENCOUNTER 2024-03-08 12:04 | Emergency (ER) | payer MEDICARE, BC ==
[~2024-03-08] VITALS: Ht 188 cm; Wt 174.1 kg
[2024-03-08] MEDS ORDERED: AMLO1TAB24 (13:00)
[2024-03-08] MEDS ORDERED: CHLO125TA (13:00)
[2024-03-08] MEDS ORDERED: ALLO300T2 (13:00)
[2024-03-08] MEDS ORDERED: PREDOPD (13:00)
[2024-03-08] MEDS ORDERED: ECOT81TA5 PO (13:00)
[2024-03-08] MEDS ORDERED: BRIN8DRO (13:00)
[2024-03-08 15:48] LABS: BASO % 0.2 % (0.0-1.0); EOS # 0.2 10^3/uL (0.0-0.5); EOS % 1.4 % (0.0-3.0); HEMATOCRIT 43.6 % (42.0-52.0); HEMOGLOBIN 14.3 g/dl (13.5-17.5); LYMPH # 1.7 10^3/uL (1.5-5.0); LYMPH % 13.7 % (24.0-44.0); MEAN CORPUSCULAR HEMOGLOBIN 28.9 pg (27.0-33.0); MEAN CORPUSCULAR HGB CONC 32.8 g/dl (32.0-36.5); MEAN CORPUSCULAR VOLUME 88.3 fl (80.0-96.0); MONO # 0.7 10^3/uL (0.0-0.8); MONO % 5.9 % (2.0-8.0); NEUTROPHILS # 9.5 10^3/uL (1.5-8.5); NEUTROPHILS % 78.3 % (36.0-66.0); PLATELET COUNT, AUTOMATED 239 10^3/uL (150-450); RED BLOOD COUNT 4.94 10^6/uL (4.30-6.10); WHITE BLOOD COUNT 12.1 10^3/uL (4.0-10.0)
[2024-03-08 16:21] LABS: ALBUMIN 4.1 G/DL (3.2-5.2); BILIRUBIN,DIRECT 0.3 MG/DL (<0.4); BILIRUBIN,TOTAL 0.9 MG/DL (0.3-1.2); CALCIUM LEVEL 9.6 MG/DL (8.3-10.6); CREATININE FOR GFR 1.54 MG/DL (0.70-1.30); GLOMERULAR FILTRATION RATE 46.9 (>42); POTASSIUM SERUM 4.1 MMOL/L (3.5-5.1)
[2024-03-08] MEDS ORDERED: ISOVUE-370 76% 100ML VIAL As Ordered ONE (16:26)
[2024-03-08] MEDS: NS 500 ML IV ONE (16:45)
[2024-03-08 18:00] VITALS: TEMP 97.1; O2SAT 97
[2024-03-08] MEDS ORDERED: AMOX875T2 PO (18:21)
[2024-03-08 18:27] VITALS: BP 158/80
[2024-03-08] MEDS: AUGMENTIN 875 MG TAB PO ONE (18:32)
== END 2024-03-08 18:47 | disposition home or self-care (01) ==
LOC: M ED 12:04
DX: K57.33 Diverticulitis of large intestine without perforation or abscess with bleeding (principal); I10 Essential (primary) hypertension; E78.5 Hyperlipidemia, unspecified; G47.33 Obstructive sleep apnea (adult) (pediatric); Z87.891 Personal history of nicotine dependence; Z79.82 Long term (current) use of aspirin; Z79.899 Other long term (current) drug therapy
CPT/HCPCS: 74177; 80048; 80076; 81001; 83605; 83690; 85025; 96360; 99284; Q9967

== ENCOUNTER → 2024-04-23 | Outpatient (REF) | payer MEDICARE, BC ==
[~2024-04-23] MED LIST changes: +ALLO300T2; +AMLO1TAB24; +AMOX875T2 PO; +BRIN8DRO; +CHLO125TA; +ECOT81TA5 PO; +PREDOPD
== END ==
LOC: M SFHCCLAY 16:10
PROVIDERS: ATTEND Family Medicine
DX: I12.9 Hypertensive chronic kidney disease with stage 1 through stage 4 chronic kidney disease, or unspecified chronic kidney disease (principal); Z53.9 Procedure and treatment not carried out, unspecified reason

== ENCOUNTER → 2024-04-26 | Outpatient (REF) | payer MEDICARE, BC ==
[2024-04-26 12:20] LABS: ALBUMIN 3.5 G/DL (3.2-5.2); BILIRUBIN,TOTAL 0.6 MG/DL (0.3-1.2); CALCIUM LEVEL 9.6 MG/DL (8.3-10.6); CREATININE FOR GFR 1.39 MG/DL (0.70-1.30); GLOMERULAR FILTRATION RATE 52.7 (>42); POTASSIUM SERUM 4.3 MMOL/L (3.5-5.1); TOTAL PROTEIN 7.2 G/DL (5.7-8.2)
[2024-04-26 12:37] LABS: HEMOGLOBIN A1c 5.4 % (4.0-6.0)
== END ==
LOC: M SFHCCLAY 07:58
PROVIDERS: ATTEND Family Medicine
DX: I12.9 Hypertensive chronic kidney disease with stage 1 through stage 4 chronic kidney disease, or unspecified chronic kidney disease (principal); N18.32 Chronic kidney disease, stage 3b; E78.2 Mixed hyperlipidemia; H40.9 Unspecified glaucoma; Z79.899 Other long term (current) drug therapy

== ENCOUNTER → 2025-02-14 | Outpatient (CLI) | payer MEDICARE, BC ==
[~2025-02-14] MED LIST changes: +LISI40TA10 PO; -LISI40TA4 PO
== END ==
LOC: M RAD 11:40
PROVIDERS: ATTEND Physician Assistant
DX: I65.23 Occlusion and stenosis of bilateral carotid arteries (principal)

== ENCOUNTER → 2025-05-09 | Outpatient (REF) | payer MEDICARE, BC ==
[2025-05-09 15:09] LABS: ALT/SGPT 21.0 U/L (7.0-40); AST/SGOT 22.0 U/L (<34); CALCIUM LEVEL 9.3 MG/DL (8.3-10.6); CARBON DIOXIDE LEVEL 28.0 MMOL/L (20-31); CHLORIDE LEVEL 105.0 MMOL/L (98-107); CHOLESTEROL LEVEL 172.0 MG/DL (<200); CHOLESTEROL RISK RATIO 5.1 (<5); CREATININE FOR GFR 1.43 MG/DL (0.70-1.30); GLOMERULAR FILTRATION RATE 50.2 (>42); LDL CHOLESTEROL 106.5 MG/DL (<100); NON-HDL-C 138.3 MG/DL; POTASSIUM SERUM 4.2 MMOL/L (3.5-5.1); SODIUM LEVEL 143.0 MMOL/L (136-145); TRIGLYCERIDES LEVEL 159.0 MG/DL (<150)
[2025-05-09 15:25] LABS: ESTIMATED AVERAGE GLUCOSE 105.0 MG/DL (60-110)
== END ==
LOC: M SFHCCLAY 07:54
PROVIDERS: ATTEND Physician Assistant
DX: I12.9 Hypertensive chronic kidney disease with stage 1 through stage 4 chronic kidney disease, or unspecified chronic kidney disease (principal); H40.9 Unspecified glaucoma; E78.2 Mixed hyperlipidemia; Z87.891 Personal history of nicotine dependence; Z79.899 Other long term (current) drug therapy